=== PATIENT | male | born 1980 | race Caucasian/White ===

== ENCOUNTER 2020-04-07 14:51 | Emergency (ER) | payer MEDICAID ==
[~2020-04-07] VITALS: Ht 165.1 cm; Wt 68.9 kg
[~2020-04-07 14:51] MED LIST: MOTRIN
[2020-04-07 14:57] VITALS: BP 121/72
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
--- NOTE | 2020-04-07 15:05 | NUR ---
PT AMB TO BED 2.
[2020-04-07] MEDS ORDERED: ACETAMINOPHEN EXTRA STRENGTH 500 MG TAB PO ONE (15:10)
[2020-04-07] MEDS ORDERED: BACITRACIN OINT 500 UNITS/GM PKT TP ONE (15:10)
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
--- NOTE | 2020-04-07 15:15 | NUR ---
BAUTISTA CERRATO AT BEDSIDE EVALUATING PATIENT.
--- NOTE | 2020-04-07 15:17 | NUR ---
PT TRANSPORTED TO CT VIA WHEELCHAIR BY TELEGRAPH SERVICE RATER.
[2020-04-07] MEDS ORDERED: LIDOCAINE JELLY 2% 30 ML TUBE TP ONE (15:20)
--- NOTE | 2020-04-07 15:25 | NUR ---
EXPLOSIVES MIXER OPERATOR RETURNED PT VIA WHEELCHAIR.
--- NOTE | 2020-04-07 15:30 | NUR ---
IRRIGATED LACERATION WITH SALINE WITHOUT ANY ISSUES
--- NOTE | 2020-04-07 15:47 | NUR ---
BAUTISTA CERRATO AT BEDSIDE FOR LACERATION REPAIR.
--- NOTE | 2020-04-07 16:10 | NUR ---
PT RESTING IN POSITION OF COMFORT. ASP WEB DEVELOPER IN PLACE. EQUAL CHEST RISE AND FALL. BED LOCKED IN LOWEST POSITION, SIDE RAILS X 1, CALL LIGHT IN REACH.
[2020-04-07 16:20] VITALS: BP 108/72
--- NOTE | 2020-04-07 16:20 | NUR ---
Patient discharged with v/s stable. Written and verbal after care instructions given and explained. Patient alert, oriented and verbalized understanding of instructions. Ambulatory with steady gait. All questions addressed prior to discharge. ID band removed. Patient advised to follow up with PMD. Rx of TYLENOL, BACITRACIN given. Patient educated on indication of medication including possible reaction and side effects. Opportunity to ask questions provided and answered.
== END 2020-04-07 16:20 | disposition home or self-care (01) ==
LOC: MED 14:51
DX: S01.01XA Laceration without foreign body of scalp, initial encounter (principal); Z79.899 Other long term (current) drug therapy; W22.8XXA Striking against or struck by other objects, initial encounter; Y93.89 Activity, other specified; Y92.89 Other specified places as the place of occurrence of the external cause; Y99.8 Other external cause status
CPT/HCPCS: 70450; 99284

== ENCOUNTER 2020-10-26 17:14 | Emergency (ER) | payer MEDICAID ==
[~2020-10-26] VITALS: Ht 160 cm; Wt 71.7 kg
[2020-10-26 17:34] VITALS: BP 128/71
--- NOTE | 2020-10-26 17:38 | NUR ---
PT SENT TO LOBBY
[2020-10-26] MEDS ORDERED: NAPR-54 PO (18:17)
[2020-10-26] MEDS ORDERED: PRED20TA5 PO (18:17)
[2020-10-26] MEDS ORDERED: PHEN177S23 PO (18:18)
--- NOTE | 2020-10-26 19:32 | NUR ---
Patient discharged with v/s stable. Written and verbal after care instructions given and explained. Patient alert, oriented and verbalized understanding of instructions. Ambulatory with steady gait. All questions addressed prior to discharge. ID band removed. Patient advised to follow up with PMD. Rx of NAPROSYN, PREDNISONE, AND PHENOL given. Patient educated on indication of medication including possible reaction and side effects. Opportunity to ask questions provided and answered.
== END 2020-10-26 19:32 | disposition home or self-care (01) ==
LOC: MED 17:14
DX: J02.9 Acute pharyngitis, unspecified (principal)
CPT/HCPCS: 99283

== ENCOUNTER 2023-04-28 13:23 | Emergency (ER) | payer MEDICAID, OTHER ==
[~2023-04-28] VITALS: Ht 157.5 cm; Wt 75.7 kg
[~2023-04-28 13:23] MED LIST changes: +NAPR-54 PO; +PHEN177S23 PO; +PRED20TA5 PO
[2023-04-28 13:35] VITALS: BP 105/66; PULSE 71; RESP 19; TEMP 98.4; O2SAT 99
[2023-04-28] MEDS: KETOROLAC 30 MG/ML VIAL IM ONE (15:08)
[2023-04-28] MEDS ORDERED: IBUP-2213 PO (15:29)
== END 2023-04-28 15:36 | disposition home or self-care (01) ==
LOC: MED 13:23
DX: G89.29 Other chronic pain (principal); M25.511 Pain in right shoulder; Z79.899 Other long term (current) drug therapy
CPT/HCPCS: 96372; 99283; J1885